=== PATIENT | male | born 1945 | race Caucasian/White ===

== ENCOUNTER 2017-12-15 11:10 | Emergency (ER) | payer MEDICARE, OTHER ==
[2017-12-15] MEDS ORDERED: dextrose 50%-water 50ml dispensing syringe IV ONE (11:45)
[2017-12-15 11:51] LABS: BASOPHILS % (AUTO) 0.5 % (0-1); EOSINOPHILS # (AUTO) 0.4 X10'3 (0-0.9); EOSINOPHILS % (AUTO) 3.7 % (0-6); HEMATOCRIT 47.8 % (42.0-52.0); HEMOGLOBIN 16.1 g/dl (14.0-17.9); LYMPHOCYTES % (AUTO) 29.3 % (21-51); MEAN CORPUSCULAR HEMOGLOBIN 32.2 PG (27.0-31.0); MEAN CORPUSCULAR HGB CONC 33.6 % (33.0-36.5); MEAN CORPUSCULAR VOLUME 95.8 FL (78-98); MEAN PLATELET VOLUME 7.3 FL (7.4-10.4); MONOCYTES # (AUTO) 0.8 X10'3 (0-0.9); NEUTROPHILS % (AUTO) 58.5 % (42-75); PLATELET COUNT 221 X10'3 (140-440); RED BLOOD COUNT 4.99 X10'6 (4.70-6.10); RED CELL DISTRIBUTION WIDTH 14.4 % (11.5-14.5); WHITE BLOOD COUNT 10.2 X10'3 (4.5-11.0)
[2017-12-15 12:09] LABS: ALANINE AMINOTRANSFERASE 13 U/L (12-78); ALBUMIN 3.7 G/DL (3.4-5.0); ALBUMIN/GLOBULIN RATIO 0.9 (1.1-1.5); ALKALINE PHOSPHATASE 77 IU/L (46-116); ANION GAP 9 (8-16); ASPARTATE AMINO TRANSFERASE 16 U/L (10-37); BLOOD UREA NITROGEN 27 MG/DL (7-18); BUN/CREATININE RATIO 19.6 (5.4-32.0); CALCIUM 9.5 MG/DL (8.5-10.1); CHLORIDE 104 MMOL/L (99-107); CREATININE 1.38 MG/DL (0.60-1.10); SODIUM 143 MMOL/L (135-145); TOTAL CARBON DIOXIDE 29.9 MMOL/L (24-32); TOTAL PROTEIN 7.7 G/DL (6.4-8.2); eGFR 51 ML/MIN
[2017-12-15 12:12] LABS: GLUCOSE 48 MG/DL (70-104); POTASSIUM 2.8 MMOL/L (3.5-5.1)
[2017-12-15] MEDS ORDERED: potassium Cl 20 mEq SR tablet PO STA (12:41)
[2017-12-15 12:45] LABS: MAGNESIUM 1.2 MG/DL (1.5-2.4)
[2017-12-15] MEDS ORDERED: magnesium oxide 400mg tablet PO ONE (12:45)
[2017-12-15] MEDS ORDERED: MAGN200T8 PO (13:02)
[2017-12-15] MEDS ORDERED: POTA20TA19 PO (13:02)
[2017-12-15] MEDS: magnesium 1gm/100ml D5W IVPB 100 ML IV SCH ×2 (13:38→14:52)
[2017-12-15 15:25] VITALS: BP 144/87
== END 2017-12-15 15:29 | disposition home or self-care (01) ==
LOC: ER 11:10
DX: E11.649 Type 2 diabetes mellitus with hypoglycemia without coma (principal); E87.6 Hypokalemia; E83.42 Hypomagnesemia; I27.20 Pulmonary hypertension, unspecified; Z98.890 Other specified postprocedural states; Z87.891 Personal history of nicotine dependence; Z79.899 Other long term (current) drug therapy
CPT/HCPCS: 36415; 80053; 82948; 83735; 85025; 93005; 96365; 96366; 96375; 99285; J7030

== ENCOUNTER 2020-05-03 12:21 | Outpatient (CLI) | payer MEDICARE, OTHER ==
[~2020-05-03 12:21] MED LIST: MAGN200T8 PO
== END 2020-05-03 23:59 | disposition home or self-care (01) ==
LOC: RAD 12:21
DX: S90.851A Superficial foreign body, right foot, initial encounter (principal); X58.XXXA Exposure to other specified factors, initial encounter; Y93.89 Activity, other specified; Y92.89 Other specified places as the place of occurrence of the external cause; Y99.8 Other external cause status
CPT/HCPCS: 73600; 73620